=== PATIENT | female | born 1985 | race Caucasian/White ===

== ENCOUNTER 2024-08-13 13:47 | Emergency (ER) | payer SELFPAY ==
[2024-08-13] MEDS ORDERED: Ketorolac 30 MG/ML SDV ONE (14:56)
[2024-08-13] MEDS: Ketorolac 30 MG/ML SDV IM ONE (14:59)
[2024-08-13] MEDS ORDERED: traMADol 50 MG Tab ONE (15:30)
== END 2024-08-13 15:33 | disposition home or self-care (01) ==
LOC: LB.ED 13:47
DX: K02.9 Dental caries, unspecified (principal); E03.9 Hypothyroidism, unspecified; Z90.49 Acquired absence of other specified parts of digestive tract; Z79.899 Other long term (current) drug therapy; Z79.890 Hormone replacement therapy; Z79.2 Long term (current) use of antibiotics; Z88.2 Allergy status to sulfonamides
CPT/HCPCS: 96372; 99282; A9270-GY; J1885